=== PATIENT | female | born 1985 | race Caucasian/White ===

== ENCOUNTER 2016-06-09 19:47 | Emergency (ER) | payer MEDICAID ==
[~2016-06-09] VITALS: Ht 160 cm; Wt 99.8 kg
[2016-06-09 19:54] VITALS: BP 161/98
--- NOTE | 2016-06-09 20:45 | NUR ---
PT TAKEN TO BED 6
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
[2016-06-09] MEDS ORDERED: ACETAMINOPHEN EXTRA STRENGTH 500 MG TAB PO ONE (22:10)
[2016-06-09 23:05] VITALS: BP 132/84
== END 2016-06-09 23:05 | disposition home or self-care (01) ==
LOC: MED 19:47
DX: O23.41 Unspecified infection of urinary tract in pregnancy, first trimester (principal); Z3A.14 14 weeks gestation of pregnancy